=== PATIENT | female | born 2000 | race African-American/Black ===

== ENCOUNTER 2025-01-21 17:11 | Emergency (ER) | payer OTHER ==
[2025-01-21 17:50] VITALS: BP 97/62; PULSE 94; RESP 18; TEMP 99.2; BMI 21.0
[2025-01-21] MEDS ORDERED: IBUPROFEN 600 MG TABLET (FP) PO ONE (18:59)
[2025-01-21] MEDS ORDERED: METHOCARBAMOL 500 MG TABLET ONE (19:00)
[2025-01-21] MEDS: IBUPROFEN 600 MG TABLET (FP) PO ONE (19:01)
[2025-01-21] MEDS: METHOCARBAMOL 500 MG TABLET PO ONE (19:02)
[2025-01-21 19:48] LABS: THROAT:GRP A STREP NOT DETECTED (NOTDETECTED)
== END 2025-01-21 20:19 | disposition home or self-care (01) ==
LOC: JERFT 17:11
DX: J32.9 Chronic sinusitis, unspecified (principal); J30.2 Other seasonal allergic rhinitis
CPT/HCPCS: 0241U-QW; 87651; 99283-25